=== PATIENT | female | born 1980 | race Two or more races ===

== ENCOUNTER 2016-08-26 18:50 | Emergency (ER) | payer MEDICAID, OTHER ==
[~2016-08-26] VITALS: Ht 170.2 cm; Wt 89.8 kg
[2016-08-26 19:00] VITALS: BP 149/117
[2016-08-26] MEDS ORDERED: IBUPROFEN 600 MG TAB PO ONE (22:30)
== END 2016-08-26 22:30 | disposition home or self-care (01) ==
LOC: EDSEX 19:00 → ER 19:00
DX: M76.71 Peroneal tendinitis, right leg (principal); M79.671 Pain in right foot
CPT/HCPCS: 73620; 81025; 99285; L3260

== ENCOUNTER 2017-03-04 20:39 | Emergency (ER) | payer MEDICAID ==
[~2017-03-04] VITALS: Ht 170.2 cm; Wt 83.9 kg
[2017-03-04 21:00] VITALS: BP 157/102
[2017-03-05] MEDS ORDERED: ACETAMINOPHEN/CODEINE#3 (300/30mg) TAB PO ONE (00:15)
== END 2017-03-05 00:28 | disposition home or self-care (01) ==
LOC: ER 20:39
DX: S63.502A Unspecified sprain of left wrist, initial encounter (principal); F17.210 Nicotine dependence, cigarettes, uncomplicated; X50.9XXA Other and unspecified overexertion or strenuous movements or postures, initial encounter; Y93.89 Activity, other specified; Y99.8 Other external cause status; Y92.89 Other specified places as the place of occurrence of the external cause
CPT/HCPCS: 73110

== ENCOUNTER 2017-04-11 09:56 | Emergency (ER) | payer MEDICAID ==
[~2017-04-11] VITALS: Ht 170.2 cm; Wt 83.9 kg
[2017-04-11 09:59] VITALS: BP 125/91
== END 2017-04-11 11:21 | disposition home or self-care (01) ==
LOC: ER 09:56
DX: S63.501A Unspecified sprain of right wrist, initial encounter (principal); F17.210 Nicotine dependence, cigarettes, uncomplicated; W22.8XXA Striking against or struck by other objects, initial encounter; Y93.89 Activity, other specified; Y99.8 Other external cause status; Y92.89 Other specified places as the place of occurrence of the external cause
CPT/HCPCS: 73110

== ENCOUNTER 2017-04-13 15:22 | Emergency (ER) | payer MEDICAID ==
[~2017-04-13] VITALS: Ht 170.2 cm; Wt 83.9 kg
[2017-04-13 15:53] VITALS: BP 126/83
== END 2017-04-13 17:06 | disposition home or self-care (01) ==
LOC: ER 15:22
DX: S60.221A Contusion of right hand, initial encounter (principal); F17.210 Nicotine dependence, cigarettes, uncomplicated; W22.01XA Walked into wall, initial encounter; Y93.89 Activity, other specified; Y92.89 Other specified places as the place of occurrence of the external cause; Y99.8 Other external cause status
CPT/HCPCS: 73130

== ENCOUNTER 2017-04-18 10:50 | Emergency (ER) | payer MEDICAID ==
[~2017-04-18] VITALS: Ht 170.2 cm; Wt 83.9 kg
[2017-04-18 10:54] VITALS: BP 158/102
== END 2017-04-18 12:37 | disposition home or self-care (01) ==
LOC: ER 10:50
DX: S63.92XA Sprain of unspecified part of left wrist and hand, initial encounter (principal); F17.210 Nicotine dependence, cigarettes, uncomplicated; W01.0XXA Fall on same level from slipping, tripping and stumbling without subsequent striking against object, initial encounter; Y93.89 Activity, other specified; Y99.8 Other external cause status; Y92.89 Other specified places as the place of occurrence of the external cause
CPT/HCPCS: 73130

== ENCOUNTER 2017-04-28 18:19 | Emergency (ER) | payer MEDICAID ==
[~2017-04-28] VITALS: Ht 170.2 cm; Wt 83.9 kg
[2017-04-28 18:30] VITALS: BP 146/100
== END 2017-04-28 20:40 | disposition home or self-care (01) ==
LOC: ER 18:21
DX: S66.912A Strain of unspecified muscle, fascia and tendon at wrist and hand level, left hand, initial encounter (principal); F17.210 Nicotine dependence, cigarettes, uncomplicated; W18.39XA Other fall on same level, initial encounter; Y93.89 Activity, other specified; Y99.8 Other external cause status; Y92.89 Other specified places as the place of occurrence of the external cause

== ENCOUNTER 2017-05-27 07:51 | Emergency (ER) | payer MEDICAID ==
[~2017-05-27] VITALS: Ht 165.1 cm; Wt 90.3 kg
[2017-05-27 08:00] VITALS: BP 136/96
== END 2017-05-27 10:04 | disposition left against medical advice (07) ==
LOC: ER 07:51
DX: R11.2 Nausea with vomiting, unspecified (principal); R19.7 Diarrhea, unspecified; R10.9 Unspecified abdominal pain; Z53.21 Procedure and treatment not carried out due to patient leaving prior to being seen by health care provider